=== PATIENT | male | born 1955 ===

== ENCOUNTER 2019-05-06 15:31 | Emergency (ER) | payer OTHER ==
--- OUTSIDE RECORDS SUMMARY | 2019-05-06 15:54 | XMS REPORT | Summary of Care ---
:1955 Author Organization [facility] Address [address] [place] [address] Care Team Providers Name Role Phone Emanuel Glass MD Primary Care Provider Reason for Visit Auth/Cert Status Reason Specialty Diagnoses / Procedures Referred By Contact Referred To Contact Diagnoses Avascular necrosis of bone of hip, left [M87.052] Nathaniel Herrera, Nathaniel Herrera, Procedures ARTHROPLASTY, ACETABULAR/PROXIMAL FEMORAL PROSTHETIC REPLACEMENT, W/WO AUTOGRAFT /ALLOGRAFT BALTA HIP REPLACEMENT MD SANDERS [address] [place] [address] [address] [place] [address] [place] [address] Email: Email: [email or web address] Encounter Details Date Type Department Care Team Description 04/29/2019 - Hospital Encounter 6 MED/SURG/ORTHO CC Nathaniel Herrera, 05/01/2019 49[address] Cooper Sotomayor MD [address] [address] [place] [id number] [phone] Allergies No Known Allergiesdocumented as of this encounter (statuses as of 05/01/2019) Medications Medication Sig Dispensed Refills Start Date End Date Status aspirin 81 MG EC Take 81 mg by 0 Active tablet mouth daily amlodipine Take 10 mg by 0 Active (NORVASC) 5 MG mouth daily tablet allopurinol Take 100 mg by 0 Active (ZYLOPRIM) 100 MG mouth Two tablet Times Daily lisinopril Take 40 mg by 0 Active (PRINIVIL,ZESTRIL) mouth daily 40 MG tablet cloNIDine HCl 0.1 Take 0.1 mg by 0 Active MG Oral Tablet mouth daily (CATAPRES) Celecoxib 100 MG Take 1 capsule 60 capsule 0 05/01/2019 05/31/20 Active Oral Capsule by mouth Two 19 (CELEBREX) Times Daily Acetaminophen 325 Take 2 tablets 30 tablet 0 05/01/2019 05/08/20 Active MG Oral Tablet by mouth every 19 6 (six) hours as needed for Pain for up to 7 days Docusate Sodium Take 1 capsule 14 capsule 0 05/01/2019 05/08/20 Active 100 MG Oral by mouth Two 19 Capsule (COLACE) Times Daily for 7 days Senna 8.6 MG Oral Take 2 tablets 14 tablet 0 05/01/2019 05/08/20 Active Tablet by mouth 19 nightly as needed for up to 7 days traMADol HCl 50 MG Take 1 tablet 30 tablet 0 05/01/2019 05/08/20 Active Oral Tablet by mouth every 19 (ULTRAM) 6 (six) hours as needed for Pain for up to 7 days, Max Daily Dose: 200 mg ibuprofen Take 600 mg by 0 05/01/20 Discontinued (ADVIL,MOTRIN) 600 mouth Three 19 (Stop Taking at MG tablet times daily as Discharge) needed for Pain Mupirocin 2 % Apply 22 g 0 04/23/2019 05/01/20 Discontinued External Ointment liberally to 19 (Stop Taking at each nostril Discharge) two times per day for 5 days prior to surgery. documented as of this encounter (statuses as of 05/01/2019) Active Problems Problem Noted Date Acute blood loss anemia 04/30/2019 Osteoarthritis of left hip 04/29/2019 Hypertension Gout Chronic left hip pain documented as of this encounter (statuses as of 05/01/2019) Social History Tobacco Use Types Packs/Day Years Used Date Never Smoker 0 Smokeless Tobacco: Never Used Alcohol Use Drinks/Week oz/Week Comments Not Currently Sex Assigned at Date Recorded Not on file Job Start Date Occupation Industry Not on file Not on file Not on file Travel History Travel Start Travel End No recent travel history available. documented as of this encounter Last Filed Vital Signs Vital Sign Reading Time Taken Comments Blood Pressure 131/72 05/01/2019 8:10 PM EST Pulse 89 05/01/2019 8:10 PM EST Temperature 36.8 05/01/2019 8:10 PM EST C (98.2 F) Respiratory Rate 18 05/01/2019 8:10 PM EST Oxygen Saturation 100% 05/01/2019 8:10 PM EST Inhaled Oxygen Concentration - - Weight 61.2 kg (135 lb) 04/29/2019 10:51 AM EST Height 162.6 cm (5' 4") 04/29/2019 10:51 AM EST Body Mass Index 23.17 04/29/2019 10:51 AM EST documented in this encounter Progress Notes Terry Harrell, RN - 05/01/2019 8:46 PM EST Assumed care from 1500 until discharge. No acute changes during this time. Reviewed discharge instructions and pt verbalized understanding. No further questions and pt identifies when to call the doctor, understanding of medications, and future appointments. Also identifies restrictions and verbalizes understanding. Has all personal belongings in their possession and vital signs stable. PIV discontinued and Pt is discharged to [address] [place] [address] correctional facility along with correctional officers.Report given to Jayde Leal RN in [address] [place] [address] ([phone]). Transported via wheelchair to [facility]. 05/01/192009 Vitals Temp 36.8 C Temp src Oral Pulse 89 Heart Rate Source Monitor Resp 18 BP 131/72 BP Location Left arm BP Method Automatic Patient Position Sitting Oxygen Therapy SpO2 100 % Tamia Cage, PT - 05/01/2019 2:15 PM ESTPhysical Therapy Acute CareTotal Joint Treatment Note Medical Diagnosis: L SERGIO direct anterior approach on 04/29/19 Rehabilitation Precautions/Restrictions: OOB with assist. FWB. Direct anterior hip precautions. Full code. moderate fall risk. Goal Review Visit Number: 3 SUBJECTIVE Patient Report: pt is agreeable to therapy session. Pain: Patient currently complains of pain. Location: L hip . Patient describes pain as Nonspecific. Verbal Scale: Patient reports a pain level of 6 out of 10. Will perform therapy only as tolerated. Pain Medication Today: yes. OBJECTIVE General Observation: pt received supine in bed in NAD. All attachments intact. Bed alarm was on at start of session. Vital Signs: Blood pressure in Supine: 100/58 in sittin/71 end of session: 113/66 Range of Motion:No change observed. Strength:No change observed. Skin Integrity Screen: L hip incision covered with dressing appears c/d/i Functional Status: Transfers: Patient transferred sit to/from stand with modified independence. Patient used the following equipment: Arms of chair. Patient used the following equipment: rolling walker. Bed Mobility: Within functional limits. Locomotion/Gait/Ambulation: Patient was modified independent with gait/ambulation for 600 feet . Patient requires the following assistive device(s): Rolling walker. Step through pattern. No assist required for mobility. therapist managing IV pole Stairs: Not applicable for this patient at this time. Outcome Measures: [facility] AM-PAC "6 Clicks" Basic Mobility Inpatient Short Form: Turning over in bed: A little difficulty (3) Sitting down on and standing up from a chair with arms: A little difficulty (3) Moving from lying on back to sitting on the side of the bed: A little difficulty (3) Moving to and from a bed to a chair (including a wheelchair): No help (4) Walking in hospital room: No help (4) Climbing 3-5 steps with a railing: A little help (3) Raw Score 20 /24. Interventions: Therapeutic Exercise: Instructed in and performed LAQs to promote ROM and circulation in L LE x 10 reps. Verbal cues for technique. Gait Training: Facilitated ambulation with rolling walker x 600 feet. pt demonstrating modified independence. Verbal cues for step through pattern. Education: Mode of education provided: Explanation. Audience: Patient. Education Provided: treatment plan. . Response: Verbalized understanding. ASSESSMENT Response to Visit: The session was tolerated well. pt left sitting in recliner in NAD. Chair alarm was on at end of session. Call chaparro was in patient's reach at end of session. Pain: Yes, pain is unchanged from start of today's treatment. Goal review: Short Term Goals: 1. pt will complete supine to/from sit independently within 1 week Status: goal met 2. pt will complete sit to/from stand with rolling walker modified independently within 1 week. Status: goal met 3. pt will ambulate 400 feet modified independently with rolling walker within 1 week. Status: goal met 4. pt will go up/down 5 stairs with unilateral rail modified independently within 1 week. Status: progressing, Changes in or Continuation of Plan of Care: Patient will benefit from continued therapy to achieve planned goals. PLAN Treatment Frequency, Duration and Interventions: Restorative Physical Therapy is recommended for 2x per day for 2 weeks Treatment is to include: Gait Training. Therapeutic Activity. Therapeutic Exercise. Self Care/Home Management. Patient/family/professionals conference. Equipment Provided: None issued this visit. Equipment Recommended: Rolling walker. Recommended Physical Therapy Follow Up: Upon acute care discharge, the following is currently recommended: Return to correctional facility with outpatient PT Recommended Consults: None currently. Development of Plan of Care: Participants included: pt. There was no change to plan of care today. Visit Number: Today's visit is number 3 Program: Total Joint (Therapist may be reached on [employer]) SESSION: Duration: 30 CHARGES: 65939 - CHARGE - PT GAIT TRNG - 15 MIN 1 Units 24460 - CHARGE - PT THER EX - 15 MIN 1 Units - ORDER - Physical Therapy Treatment 1 Units - TOTAL JOINT VISIT 1 Units Total treatment minutes: 30.00 Minutes Electronically Signed by: Tamia Rinaldi PT, DPT, 05/01/2019 2:25:18 PM Betty Olmstead OT - 05/01/2019 11:25 AM ESTOccupational Therapy Acute Care Missed Visit Note Location: Bedside. Attempted to visit patient for therapy, but was unable for the following reasons: Patient Ill. Nursing requestin no OOB activity at this time. Patient to receive blood transfusion shortly. Will attempt to eval patient at a later time as schedule allows. (Therapist may be reached on [employer]) SESSION: Duration: 0 CHARGES: - CHARGE-IP OT PATIENT ILL 1 Units - ORDER - OCCUPATIONAL THERAPY CONSULT 1 Units Total treatment minutes: 0.00 Minutes Electronically Signed by: Betty Palacios OT, 05/01/2019 11:26:10 AM Tamia Cage PT - 05/01/2019 10:08 AM ESTPhysical Therapy Acute Care Missed Visit Note Location: bedside Attempted to visit patient for therapy, but was unable for the following reasons: Patient Ill. Per RN, requesting pt not get out of bed at this time due to hypotension and awaiting blood transfusion. Will re-attempt at a later time. (Therapist may be reached on [employer]oc[employer]) SESSION: Duration: 0 CHARGES: 02311 - CHARGE IP PT PATIENT ILL 1 Units - ORDER - Physical Therapy Treatment 1 Units Total treatment minutes: 0.00 Minutes Electronically Signed by: Tamia Rinaldi PT, DPT, 05/01/2019 10:10:23 AM Daja Sharif - 05/01/2019 9:00 AM ESTPatient visited by Department of Spiritual Care Volunteer - Meghana Nails Note entered by Daja Camejo MS, Department of Spiritual Care Real Estate Acquisition Analyst, [facility] Natali Raymond RN - 05/01/2019 8:22 AM ESTPt was performing ADL's in bathroom. Pt became "dizzy" and did not respond for a few seconds when asked how he was feeling. Staff assisted Pt to siting position in the shower chair. Staff came to assist Pt back to bed. BP was 96/61 during episode. Pt placed in trendelenburg, fluids started and ZABRINA madeaware. Lisinopril and norvasc held. Will continue to monitor. Laura Feliz PA - 2018 8:09 AM EST ORTHOPEDIC PROGRESS NOTE Hospital Day: 3, 2 Days Post-Op Procedure(s): LEFT TOTAL HIP WITH MAKOPLASTY BY DIRECT ANTERIOR APPROACH (BALTA EQUIPMENT, CARLEY ACCOLADE II STEM) (Left) Subjective: Patient doing okay. Denies headache, chest pain, shortness of breath, nausea, vomiting, or abdominalpain. Pain well controlled. Vasovagal this AM when pt ambulating to bathroom. Became dizzy but did not lose consciousness per nursing. BP 94/57 and receiving IV fluid bolus. Pt back to bed and is feeling better at rest. Vitals: Vitals: 04/30/19 1520 04/30/19 2020 04/30/19 2320 05/01/19 0639 BP: 115/71 101/61 98/60 Pulse: 80 78 81 Resp: 16 16 17 Temp: 36.7 C 36.6 C 36.7 C SpO2: 100% 99% 100% 100% Intake/Output last 3 shifts: I/O last 3 completed shifts: In: 2635 [P.O.:1080; I.V.:1555] Out: 1200 [Urine:1200] Intake/Output Summary (Last 24 hours) at 05/01/2019 0809 Last data filed at 05/01/2019 0639 Gross per 24 hour Intake 2395 ml Output 850 ml Net 1545 ml Drain Output: Drain Output (mL) 04/30/19 0700 - 05/01/19 0659 05/01/19 0700 - 05/01/19 0809 Patient has no LDAs of requested type attached. Physical Exam: Alert, Awake, Oriented x 3 No acute distress Lungs no respiratory distress ABD soft Dressing clean, dry, no drainage, intact. Left lower extremity: +SILT distally +EHL/FHL/DF/PF Toes WWP, palp distal pulse Calves benign B/L Labs: Recent Labs Lab 05/01/19 0444 HCT 21.5* HGB 7.5* MCH 34.6* MCHC 35.2 MCV 98.4* PLT 154 RDW 14.0 WBC 6.8 Recent Labs Lab 04/30/19 0405 NA 135* K 4.8 CL 101 BICARBONATE 26 GLUCOSE 163* BUN 14 CREATININE 1.07 BCR 13 GFRAA 82 GFRNONAA 71 Lab Results Component Value Date CALCIUM 8.4 (L) 04/30/2019 No results found for: INR, PROTIME ASSESSMENT: Principal Problem: Osteoarthritis of left hip Active Problems: Hypertension Gout Chronic left hip pain Acute blood loss anemia PLAN: -Osteoarthritis of left hip 2 Days Post-Op s/p L SERGIO -Ortho stable post op -Continue OOB, WBAT -Mild elevation in WBC POD1 , has since resolved without abx, likely reactive from surgery. Afebrile -Vasovagal this AM when pt ambulating to bathroom. Nursing in room with patient. Pt did not lose consciousness. BP 94/57. Ordered 500cc bolus x1. Hct 21 this AM. Ordered 1u PRBC for transfusion. Will continue to monitor. Pt encouraged to increase fluid PO intake. Per pt does not like to "drink too Much " because he will "be in the bathroom too much". I still recommended increasing PO fluids due to low BP and dizziness. Pt voices understanding -Anterior hip precautions -Continue PT/OT -Pain control ,well controlled with current regimen -Per CM, pt will be able to go back to -Acute Blood Loss Anemia- expected post op, H&H 7.5/21.5 this AM, vasovagal this AM with some lightheadedness, ordered 1u PRBC in light of low Hct and symptomatic, continue to monitor. -HTN- 94/57 this AM and had vasovagal, receiving 500cc IV fluid bolus, home BP meds held this AM, monitor -Gout - no acute flares, continue home allopurinol - DVT Prophylaxis - SCDs Lovenox 40 mg Daily - DCP - back to half-way likely today with PT services there Certain parts of this note may have been carried over from prior notes to maintain accuracy of patient's pertinent medical history and continuity of care. The details were verified and edited as appropriate. Laura Cueva Astrid Roa, MIKE - 04/30/2019 5:41 PM ESTCase Management Screen &amp ; Assessment Patient's Name: Tanmay Zabala Date of : 1955 Age: 64 y.o. Gender: male Attending Provider: Nathaniel Herrera MD Admitting Diagnosis: Osteoarthritis of left hip [M16.12] Admission Date and Time: 04/29/2019 8:54 AM High Risk Criteria - BATTER MIXER/Upon Arrival BATTER MIXER-Type of Residence: Long-Term / Incarcerated Limited Home Supports/Lives Alone?: No Multi trauma/Critical care admit?: No Head/Spinal cord injury?: No Self pay/No prescription plan?: No Active with homecare?: No Multiple ED visits?: No Related/Unplanned readmission within 30 days?: No Complex/New medical issues: left total hip Relevant comorbidities: htn, gout Psychosocial considerations: incarcerated CM Screen Outcome Knowledge Management Advisor Screen Outcome: Meets high risk criteria for active manager case management intervention(return to5PTs in [place]) Important message (Medicare rights) given?: No Intervention: (na) CM Chart Review Notice of Privacy Practice Signed?: Yes Self Pay: No Prescription Plan?: Yes (comment) BATTER MIXER: Functional/Environmental Assessment Came from Rehab/SNF, plan to return?: No Brief physical/psychosocial summary: resides at the [facility] Bathing: Independent Dressing: Independent Toileting: Independent Medication administration: Independent Transfers: Independent Ambulation: Independent Meal preparation: Independent Durable Medical Equipment (DME): (available at the correctional facility) Potential Issues/Teaching Needs Physical: PT eval, safety at home (correctional facility) Other: care of incision, discharge instructions Case Management Review Date CM re-review date needed?: No Discharge Assessment Patient/family informed of need for discharge planning?: No(will update guards) Patient expects to be discharged to:: back to [facility] Actual discharge location : Correctional Facility Has discharge transport been arranged?: (will be arranged upon discharge) Home with support services reinstated?: No Living Arrangements: Other (Comment) Support Systems: Other (Comment) Type of Residence: Long-Term / Incarcerated Care Facility Name: [address] [place] [address] Home services arranged?: No Note: Chart reviewed. Patient admitted for a left total hip. Patient resides at the [facility]. CM received a call from Eliseo Marcelino CM for the Correctional System. Per Eliseo [facility] is planning on taking the patient back at their facility as long as he can transfer and ambulate independently. Cm spoke with PT this afternoon who said the patient is moving well and is independent with transfers and ambulation. I will call the correctional facility in the am to obtain a fax number to fax clinical to for their review. I anticipate he will be able to be discharged tomorrow if medically stable. Nursing will need to call nurse to nurse report to the nurse human resources benefits administrator at [phone], dial 0 and ask for the nurses station. NOPP signed. CM to follow up in the am. Astrid Parham ChristineElectroncole signed by Astrid Parham RN at 2018 5:47 PM Tamia Cage PT - 04/30/2019 4:02 PM ESTPhysical Therapy Acute Care Encounter Note Medical Diagnosis: L SERGIO direct anterior approach on 04/29/19 Rehabilitation Precautions/Restrictions: OOB with assist. FWB. Direct anterior hip precautions. Full code. moderate fall risk. Goal Review Visit Number: 2 SUBJECTIVE Patient Report: Pt is agreeable to therapy session. Pain: Patient has no complaints of pain currently. Pain Medication Today: yes. OBJECTIVE General Observation: pt received sitting in recliner in NAD. All attachments intact. Chair alarm was on at start of session. Skin Integrity Screen: L hip incision covered with dressing appears c/d/i Vital Signs: Stable. Functional Status: Transfers: Patient transferred sit to/from stand with modified independence. Patient used the following equipment: rolling walker. pushing up from edge of bed. Bed Mobility: Within functional limits. Locomotion/Gait/Ambulation: Patient was supervision with gait/ambulation for 600 feet . Patient requires the following assistive device(s): Gait belt. Rolling walker. Step through pattern. Slightly decreased hortensia. Stairs: Not applicable for this patient at this time. Outcome Measures: [facility] "6 Clicks" Basic Mobility Inpatient Short Form: Turning over in bed: A little difficulty (3) Sitting down on and standing up from a chair with arms: A little difficulty (3) Moving from lying on back to sitting on the side of the bed: A little difficulty (3) Moving to and from a bed to a chair (including a wheelchair): No help (4) Walking in hospital room: No help (4) Climbing 3-5 steps with a railing: A little help (3) Raw Score 20 /24. Interventions: Therapeutic Exercise: Instructed in and performed ther ex to promote ROM and circulation in L LE. All completed 2 x 10 reps. Verbal cues for technique. -ankle pumps -quad sets -glute sets Therapeutic Activities: Therapeutic Activities: Facilitated ambulation with rolling walker with distant supervision x 600 feet. Verbal cues for improving gait speed. Facilitated sit to supine from flat bed. pt demonstrating independence. Education: Mode of education provided: Explanation. Audience: Patient. Education Provided: treatment plan. . Response: Verbalized understanding. ASSESSMENT Response to Visit: The session was tolerated well. pt left supine in bed in NAD. Chair alarm was on at end of session. Call chaparro was in patient's reach at end of session. Pain: Patient has no complaints of pain currently. PLAN Treatment Frequency, Duration and Interventions: Restorative Physical Therapy is recommended for 2x per day for 2 weeks Treatment is to include: Gait Training. Therapeutic Activity. Therapeutic Exercise. Self Care/Home Management. Patient/family/professionals conference. Cold/Ice Pack. Recommended Physical Therapy Follow Up: Upon acute care discharge, the following is currently recommended: Return to correctional facility Equipment Provided: None issued this visit. Visit Number: Today's visit is number 2 Program: Total Joint (Therapist may be reached on Voc[employer]) SESSION: Duration: 31 CHARGES: - ORDER - Physical Therapy Treatment 1 Units 85455 - CHARGE - PT THER EX - 15 MIN 1 Units 27187 - CHARGE - PT THERAPEUTIC ACTIVITIES - 15 MIN 1 Units - TOTAL JOINT VISIT 1 Units Total treatment minutes: 31.00 Minutes Electronically Signed by: Tamia Rinaldi PT, DPT, 04/30/2019 4:07:55 PM Laura Feliz PA - 04/30/2019 8:01 AM EST ORTHOPEDIC PROGRESS NOTE Hospital Day: 2, 1 Day Post-Op Procedure(s): LEFT TOTAL HIP WITH MAKOPLASTY BY DIRECT ANTERIOR APPROACH (BALTA EQUIPMENT, CARLEY ACCOLADE II STEM) (Left) Subjective: Patient doing well. No new complaints. Denies chest pain, shortness of breath, nausea, vomiting, or abdominal pain. Pain well controlled. Vitals: Vitals: 04/29/19 2100 04/29/19 2200 04/29/19 2300 04/30/19 0406 BP: 117/71 96/64 104/60 93/50 Pulse: 78 92 89 81 Resp: 15 17 17 16 Temp: 36.8 C 36.4 C 36.4 C 36.8 C SpO2: 100% 100% 100% 100% Intake/Output last 3 shifts: I/O last 3 completed shifts: In: 1600 [I.V.:1500; IV Piggyback:100] Out: 1200 [Urine:950; Blood:250] Intake/Output Summary (Last 24 hours) at 04/30/2019 0801 Last data filed at 04/30/2019 0716 Gross per 24 hour Intake 1600 ml Output 1350 ml Net 250 ml Drain Output: Drain Output (mL) 04/29/19 0700 - 04/30/19 0659 04/30/19 0700 - 04/30/19 0801 Patient has no LDAs of requested type attached. Physical Exam: Alert, Awake, Oriented x 3 No acute distress Lungs no respiratory distress ABD soft Dressing clean, dry, no drainage, intact. Left lower extremity: +SILT distally +EHL/FHL/DF/PF Toes WWP, palp distal pulse Calves benign B/L Labs: Recent Labs Lab 04/30/19 0405 HCT 27.2* HGB 9.3* MCH 33.8* MCHC 34.2 MCV 98.9* PLT 196 RDW 14.0 WBC 12.1* Recent Labs Lab 04/30/19 0405 NA 135* K 4.8 CL 101 BICARBONATE 26 GLUCOSE 163* BUN 14 CREATININE 1.07 BCR 13 GFRAA 82 GFRNONAA 71 Lab Results Component Value Date CALCIUM 8.4 (L) 04/30/2019 No results found for: INR, PROTIME ASSESSMENT: Principal Problem: Osteoarthritis of left hip Active Problems: Hypertension Gout Chronic left hip pain Acute blood loss anemia PLAN: -Osteoarthritis of left hip 1 Day Post-Op s/p L SERGIO -DWPO -OOB, WBAT -Mild elevation in WBC at 12.1, likely reactive from surgery. Afebrile -Anterior hip precautions -Continue PT/OT -Pain control ,well controlled with current regimen -Acute Blood Loss Anemia- expected post op, mild, asymptomatic, continue to monitor. -HTN- on the lower side this AM at 93/50, pt asymptomatic, continue home amlodipine, clonidine, lisinopril with hold parameters, monitor -Gout - no acute flares, continue home allopurinol - DVT Prophylaxis - SCDs Lovenox 40 mg Daily - DCP - pending PT progress Certain parts of this note may have been carried over from prior notes to maintain accuracy of patient's pertinent medical history and continuity of care. The details were verified and edited as appropriate. Laura Cueva Associated attestation - Nathaniel Herrera MD - 04/30/2019 7:29 PM ESTORTHOPEDIC ATTENDING NOTE Patient seen and examined. Physician's inventory control assistant note reviewed. I agree with the assessment and plan. Changes/modifications, if any, are noted below. Strong active quad firing. Decreased LTS over LFCN distribution as is common with DAA.Laura Cueva PA - 04/29/2019 8:41 PM EST ORTHOPEDIC POST-OP CHECK: Patient seen and examined, s/p Procedure(s): LEFT TOTAL HIP WITH MAKOPLASTY BY DIRECT ANTERIOR APPROACH (BALTA EQUIPMENT, CARLEY ACCOLADE II STEM) (Left). No issues at this time. Has been doing well since arrival on the floor. Denies nausea/vomiting/headaches/chest pain/shortness of breath. PE: Visit Vitals BP 97/62 (BP Location: Right arm, Patient Position: Lying) Pulse 90 Temp 36.6 C (Oral) Resp 14 Ht 1.626 m Wt 61.2 kg (135 lb) SpO2 100% BMI 23.17 kg/m GEN: No acute distress. Patient Alert and Oriented x3. Dressing clean, dry, no drainage, intact. Left lower extremity: +diminished sensation distally, likely secondary to nerve block +EHL/FHL/DF/PF Toes WWP, palp distal pulse Calves benign B/L Post-Op X-ray: IMPRESSION: Status post left total hip arthroplasty. alignment appears anatomic. A/P: Tanmay Zabala is a 64 y.o. y.o. male s/p Procedure(s): LEFT TOTAL HIP WITH MAKOPLASTY BY DIRECT ANTERIOR APPROACH (BALTA EQUIPMENT, CARLEY ACCOLADE II STEM) (Left), POD#0 No current concerns. Pain control. Continue current orders. Will continue to monitor. DVT Prophylaxis: SCDs Lovenox 40 mg Daily Laura Cueva PA Roz Sage RN - 04/29/2019 4:58 PM EST 04/29/19 1650 Patient Observation Observations Patient bladder scanned for 227 ml Genny Zapata BS RN - 04/29/2019 3:29 PM ESTSpoke with MINNIE Marcelino and will contact unit manager case management tomorrow to coordinate d/c plan. Will remain available. Genny Coffey BS citizen participation specialist Navigator documented in this encounter Plan of Treatment Date Type Specialty Care Team Description 05/16/2019 Office Visit Orthopedic Surgery Nathaniel Herrera MD [address] [place] [address] [phone] 05/16/2019 Office Visit Orthopedic Surgery Name Type Priority Associated Diagnoses Date/Time Surgical Pathology Pathology and Routine 04/29/2019 3:36 Exam (Community Cytology PM EST [place] Only) CROSSMATCH, PAT Blood Bank Routine 05/01/2019 7:00 AM EST Name Type Priority Associated Order Schedule Diagnoses Surgical Pathology Pathology and Routine Once for 1 Exam (Community Cytology Occurrences [place] Only) starting 04/29/2019 until 04/29/2019 Oxygen Orders: Respiratory Care Routine Continuous for 30 Nasal Cannula; days for 4 Days Liters per minute: starting 04/29/2019 2 LPM; D/C Oxygen until 05/03/2019 48hrs After Being on Room Air: Yes; Wean/Titrate O2 to Keep Sats =>: 91 Incentive Respiratory Care Routine Respiratory use Spirometry RT Teach only - Every 2 hours while awake for 30 Days starting 04/29/2019 until 05/29/2019 CBC Lab Routine Daily for 3 Occurrences starting 04/30/2019 until 05/02/2019, 2 completed Prepare RBC 1 Unit Blood Bank Routine Once for 1 Occurrences starting 05/01/2019 until 05/01/2019 Health Maintenance Due Date Last Done Comments MMR Vaccines (1 of 1 - Standard 1955 series) DTaP,Tdap,and Td Vaccines (1 - 1961 Tdap) Colon Cancer Screening 10 yrs 2004 Zoster Vaccines (1 of 2) 2004 Influenza Vaccine 03/11/2019 Pneumococcal Vaccine: 65+ Years (1 2019 of 2 - PCV13) Hepatitis C Screening (B. Completed 04/30/2019 [id number]) HIB Vaccines Aged Out No longer eligible based on patient's age to complete this topic Hepatitis A Vaccines Aged Out No longer eligible based on patient's age to complete this topic Hepatitis B Vaccines Aged Out No longer eligible based on patient's age to complete this topic IPV Vaccines Aged Out No longer eligible based on patient's age to complete this topic Pneumococcal Vaccine: Pediatrics Aged Out No longer eligible based on (0 to 5 Years) and At-Risk patient's age to complete Patients (6 to 64 Years) this topic Varicella Vaccines Aged Out No longer eligible based on patient's age to complete this topic documented as of this encounter Implants Implanted Type Area Ingot Passer Device Shelf Model / Identifier Expiration Serial / Date Lot Shell Acetab 50mm Deloristrident Ii - [id number] Left: CARLEY 04/11 [id number] / Implanted: Qty: 1 on 04/29/2019 by Nathaniel Herrera MD at OR [email or web address] / [id number] Liner 36mm 0dg Sz D - [id number] Left: CARLEY 02/25/2024 [id number] / Implanted: Qty: 1 on 04/29/2019 by Nathaniel Herrera MD at OR [email or web address] / [id number] Screw Hex Low Prof 6.5x25mm. - [id number] Left: CARLEY 11/12/2023 [id number] / Implanted: Qty: 1 on 04/29/2019 by Nathaniel Herrera MD at OR [email or web address] / [id number] Hip Stem Angled Accoladeii 132#4. - [id number] Left: CARLEY 02/05/2024 [id number] / Implanted: Qty: 1 on 04/29/2019 by Nathaniel Herrera MD at OR [email or web address] / [id number] Head Fem Lfit V40 36mm Std - [id number] Left: CARLEY 03/10/2020 [id number] / Implanted: Qty: 1 on 04/29/2019 by Nathaniel Herrera MD at OR [email or web address] / [id number] documented as of this encounter Procedures Procedure Name Priority Date/Time Associated Comments Diagnosis POCT GLUCOSE, DOCKED Routine 05/01/2019 5:16 Results for this PM EST procedure are in the results section. HEMOGLOBIN Routine 05/01/2019 4:40 Results for this PM EST procedure are in the results section. HEMATOCRIT Routine 05/01/2019 4:40 Results for this PM EST procedure are in the results section. TRANSFUSE RBC (ONCE) Routine 05/01/2019 3:59 PM EST CONFIRMATORY TYPE Routine 05/01/2019 4:44 Results for this AM EST procedure are in the results section. HEPATITIS C ANTIBODY Routine 05/01/2019 4:44 Results for this AM EST procedure are in the results section. CBC Routine 05/01/2019 4:44 Results for this AM EST procedure are in the results section. CBC Routine 04/30/2019 4:05 Results for this AM EST procedure are in the results section. BASIC METABOLIC PANEL Routine 04/30/2019 4:05 Results for this AM EST procedure are in the results section. XR PELVIS 1-2 VIEWS STAT 04/29/2019 5:29 Results for this 16995 PM EST procedure are in the results section. ARTHROPLASTY, 04/29/2019 2:35 Avascular necrosis ACETABULAR/PROXIMAL PM EST of bone of hip, FEMORAL PROSTHETIC left REPLACEMENT, W/WO AUTOGRAFT/ALLOGRAFT Special Needs NIKITA [id number] US GUIDED PERIPHERAL NERVE BLOCK (OR ONLY) Routine 04/29/2019 1:35 PM EST RADIOLOGY REPORT 04/25/2019 1:10 PM EST documented in this encounter Results POCT glucose, docked (05/01/2019 5:16 PM EST) POC Glucose 103 70 - 140 mg/dL [facility] POC Specimen Whole Blood Performing Organization Address [facility] Phone Number POINT OF CARE TEST [address] [place] [address] [facility] POC [address] [place] [phone] Hematocrit (05/01/2019 4:40 PM EST) Hematocrit 26.9 (L) 41 - 53 % [facility] at Specimen EDTA Whole Blood Performing Organization Address [facility] Phone Number [facility] PATHOLOGY AT [facility] [address] [place] [address] [facility] at [address] [address] Hemoglobin (05/01/2019 4:40 PM EST) Hemoglobin 9.3 (L) 13.5 - 18 g/dL [facility] at Specimen EDTA Whole Blood Performing Organization Address City/[facility] Phone Number [facility] PATHOLOGY AT [facility] [address] [place] [address] [facility] at [address] [place] [phone] Confirmatory Type (05/01/2019 4:44 AM EST) ABO/RH(D) O POS [facility] at Blood Bank Comment Blood Type [facility] at Specimen EDTA Whole Blood Performing Organization Address City/[facility]/Zipcode Phone Number [facility] PATHOLOGY AT [address] [address] [facility] at [address] [place] [phone] Hepatitis C antibody (05/01/2019 4:44 AM EST) Pathologist [facility] Hepatitis C Ab Non ReactiveComment: Non Reactive [facility] serological Univ Clin evidence of active Pathology infection. If recent exposure is suspected, test for HCV RNA. Specimen Serum Performing Organization Address [facility] Phone Number [facility] CLINICAL PATHOLOGY [address] [place] [address] [facility] Clin [address] [place] [address] Pathology CBC (05/01/2019 4:44 AM EST) White Blood Cell 6.8 4 - 10 10*3/uL [facility] at Red Blood Cell 2.18 (L) 4.6 - 6.1 [facility] 10*6/uL [facility] at Hemoglobin 7.5 (L) 13.5 - 18 g/dL [facility] at Hematocrit 21.5 (L) 41 - 53 % [facility] Mean Cell Volume 98.4 (H) 80 - 96 fL [facility] Mean Cell Hemoglobin 34.6 (H) 27 - 33 pg [facility] Mean Cell Hgb Conc 35.2 32.0 - 36.0 [facility] g/dL [facility] at Red Cell Dist Width 14.0 11.5 - 14.5 % [facility] Platelet Count 154 150 - 400 [facility] 10*3/uL Medical [facility] at Specimen EDTA Whole Blood Performing Organization Address City/[facility]/Zipcode Phone Number [facility] PATHOLOGY AT [address] [address] [phone] [facility] at [address] [address] CBC (04/30/2019 4:05 AM EST) White Blood Cell 12.1 (H) 4 - 10 10*3/uL [facility] at Red Blood Cell 2.75 (L) 4.6 - 6.1 [facility] 10*6/uL Medical Univ at CG Hemoglobin 9.3 (L) 13.5 - 18 g/dL [facility] at Hematocrit 27.2 (L) 41 - 53 % [facility] at Mean Cell Volume 98.9 (H) 80 - [address] [facility] at Mean Cell Hemoglobin 33.8 (H) 27 - [address] [facility] at Mean Cell Hgb Conc 34.2 32.0 - 36.0 [facility] g/dL Medical [facility] at Red Cell Dist Width 14.0 11.5 - 14.5 % [facility] at Platelet Count 196 150 - 400 [facility] 10*3/uL [facility] at Specimen EDTA Whole Blood Performing Organization Address City/State/Zipcode Phone Number [facility] PATHOLOGY AT [address] [address] [phone] [facility] at [facility] [place] [address] Basic Metabolic Panel (04/30/2019 4:05 AM EST) Bicarbonate 26 22 - 29 mmol/L [facility] at Chloride 101 98 - 107 mmol/L [facility] at Creatinine 1.07 0.70 - 1.20 [facility] mg/dL [facility] at Glucose 163 (H) 70 - 140 mg/dL [facility] at Potassium 4.8 3.4 - 5.1 [facility] mmol/L Medical [facility] at Sodium 135 (L) 136 - 145 [facility] mmol/L Medical [facility] at Blood Urea Nitrogen 14 8 - 23 mg/dL [facility] at Anion Gap 8 8 - 15 mmol/L [facility] at Osmolality, Nam 284 275 - 300 [facility] mosm/kg Medical [facility] at BUN/Cre Ratio [address] [facility] at Calcium 8.4 (L) 8.8 - 10.2 [facility] mg/dL Medical Univ at GFR Non 71 >60 [facility] Ethiopian 2009 CDK-EPI mL/min/1.73m2 Medical Univ at CG GFR 82 >60 [facility] 2009 CKD-EPI mL/min/1.73m2 Medical Univ at CG Specimen Plasma Performing Organization Address City/State/Zipcode Phone Number [facility] PATHOLOGY AT [facility] [address] [place], [place] [phone] [facility] at [address] [place] [address] XR Pelvis 1-2 Views (04/29/2019 5:29 PM EST) Specimen Narrative Performed At PROCEDURE INFORMATION: [facility] RADIOLOGY Exam: XR Pelvis Exam date and time: 04/29/2019 5:20 PM Age: 64 years old Clinical history: Hip pain; Left hip; Additional info: Post op evaluation for alignment of prosthesis TECHNIQUE: Imaging protocol: XR pelvis. Views: 1 or 2 view. COMPARISON: DX XR HIP- UNILAT, 2-3 VIEWS [id number] 01/20/2019 8:39 AM FINDINGS: Bones/joints: Status post a left total hip arthroplasty. Soft tissues: Extensive subcutaneous emphysema is present within the lateral soft tissues on the left. Other findings: There is usual appearance of this procedure. IMPRESSION: Status post left total hip arthroplasty. alignment appears anatomic. THIS DOCUMENT HAS BEEN ELECTRONICALLY SIGNED BY CHUYITA NEAL MD Procedure Note Interface, Received Via [employer] - 04/29/2019 5:33 PM EST PROCEDURE INFORMATION: Exam: XR Pelvis Exam date and time: 04/29/2019 5:20 PM Age: 64 years old Clinical history: Hip pain; Left hip; Additional info: Post op evaluation for alignment of prosthesis TECHNIQUE: Imaging protocol: XR pelvis. Views: 1 or 2 view. COMPARISON: DX XR HIP- UNILAT, 2-3 VIEWS [id number] 01/20/2019 8:39 AM FINDINGS: Bones/joints: Status post a left total hip arthroplasty. Soft tissues: Extensive subcutaneous emphysema is present within the lateral soft tissues on the left. Other findings: There is usual appearance of this procedure. IMPRESSION: Status post left total hip arthroplasty. alignment appears anatomic. THIS DOCUMENT HAS BEEN ELECTRONICALLY SIGNED BY CHUYITA NEAL MD Performing Organization Address City/[facility]/Zipcode Phone Number [facility] RADIOLOGY [address] [place] [address] US Guided Peripheral Nerve Block (OR ONLY) (04/29/2019 1:35 PM EST) Specimen Performing Organization Address City/[facility]/Zipcode Phone Number [facility] RADIOLOGY [address] [place] [address] RADIOLOGY REPORT (04/25/2019 1:10 PM EST) Narrative Performed At documented in this encounter Visit Diagnoses Diagnosis Osteoarthritis of left hip - Primary Osteoarthrosis, unspecified whether generalized or localized, pelvic region and thigh Hypertension Unspecified essential hypertension Gout Gout, unspecified Chronic left hip pain Pain in joint, pelvic region and thigh Acute blood loss anemia Acute posthemorrhagic anemia documented in this encounter Administered Medications Medication Order MAR Action Action Date Dose Rate Site acetaminophen (TYLENOL) tablet Given 04/30/2019 6:05 PM EST 650 mg 650 mg 650 mg, Oral, Every 6 hours PRN, Mild Pain (Pain Scale Score 1-3), Starting Sun04/29/19 at 1828, For 30 days, Maximum daily dose of acetaminophen is 3,000 mg from all sources in 24 hours., Given 04/30/2019 8:46 AM EST 650 mg allopurinol (ZYLOPRIM) tablet 100 mg Given 05/01/2019 7:56 PM EST 100 mg 100 mg, Oral, 2 Times Daily, First dose on Sun04/29/19 at 2100, For 30 days Given 05/01/2019 9:31 AM EST 100 mg Given 04/30/2019 8:54 PM EST 100 mg aspirin EC EC tablet 81 mg Given 05/01/2019 9:30 AM EST 81 mg 81 mg, Oral, Daily Standard, First dose on Sun04/30/19 at 0900, For 30 days Given 04/30/2019 8:46 AM EST 81 mg celecoxib (CELEBREX) capsule 100 mg Given 05/01/2019 7:56 PM EST 100 mg 100 mg, Oral, 2 Times Daily, First dose on Sun04/30/19 at 2100, For 30 days Given 05/01/2019 9:31 AM EST 100 mg Given 04/30/2019 8:54 PM EST 100 mg docusate sodium (COLACE) capsule 100 mg Given 05/01/2019 9:31 AM EST 100 mg 100 mg, Oral, 2 Times Daily, First dose on Sun04/29/19 at 2100, For 30 days Given 04/30/2019 8:54 PM EST 100 mg Given 04/30/2019 8:46 AM EST 100 mg enoxaparin sodium (LOVENOX) injection 40 mg Given 05/01/2019 9:31 AM EST 40 mg 40 mg, Subcutaneous, Daily Standard, First dose on Sun04/30/19 at 0900, For 30 days, Non Patients: body weight < 150 kg, CrCl > 30 mL/min. Guidelines for Lovenox: MUST wait 24 hours before starting Enoxaparin if patient has epidural catheter. D/C Enoxaparin 10-12 hours prior to removing epidural catheter., Given 04/30/2019 8:46 AM EST 40 mg NaCl infusion 0.9 % New Bag 04/30/2019 5:58 AM EST 100 mL/hr at 100 mL/hr, Intravenous, Continuous, Starting Sun04/29/19 at 1730, For 30 days New Bag 04/29/2019 5:27 PM EST 100 mL/hr polyethylene glycol (MIRALAX) packet 17 g Given 05/01/2019 9:31 AM EST 17 g 17 g, Oral, Daily PRN, As needed for Constipation, Starting Sun04/29/19 at 1828, For 30 days, Mix in 8 ounces of water, juice or milk. Avoid use in patients who require thickened liquids due to potential increased risk for aspiration., senna 8.6 MG 2 tablet Given 04/30/2019 8:54 PM EST 2 tablets 2 tablet, Oral, Nightly, First dose on Sun04/29/19 at 2200, For 30 days Given 04/29/2019 9:11 PM EST 2 tablets sodium chloride (preservative free) 0.9 % New Bag 05/01/2019 2:48 AM EST 3 mLs flush 3 mL 3 mL, Intravenous, Every 8 hours Standard (3 times per day), First dose on Sun04/30/19 at 0100, For 30 days, Saline Lock. Flush Q8H and after each use to Saline Lock., Given by IV push 04/30/2019 6:05 PM EST 3 mLs Given by IV push 04/30/2019 8:47 AM EST 3 mLs sodium chloride (preservative free) 0.9 % flush 3 mL 3 mL, Intravenous, PRN, Line Care, Starting Sun04/29/19 at 1828, For 30 days, Saline Lock. Flush Q8H and after each use to Saline Lock., tramadol (ULTRAM) tablet 50 mg Given 05/01/2019 2:48 AM EST 50 mg 50 mg, Oral, Every 6 hours PRN, Moderate Pain (Pain Scale Score 4-6), Starting Sun04/30/19 at 1820, For 3 days Medication Order MAR Action Action Date Dose Rate Site acetaminophen (TYLENOL) tablet Given 04/29/2019 11:02 AM EST 975 mg 975 mg 975 mg, Oral, Once, Sun04/29/19 at 1045, For 1 dose, Pre-op, Maximum daily dose of acetaminophen is 3,000 mg from all sources in 24 hours., bupivacaine (MARCAINE) 0.25 % 20 mL, ketorolac Given 04/29/2019 4:11 PM EST (TORADOL) 30 mg, morphine sulfate (PF) 10 mg syringe Infiltration, Once, Sun04/29/19 at 1045, For 1 dose, Pre-op ceFAZolin (ANCEF) IVPB 2 g in New Bag 04/30/2019 6:34 AM EST 2 g 200 mL/ hr dextrose (premix) 2 g, Intravenous, Administer over 30 Minutes, Every 8 hours, First dose on Sun04/29/19 at 2300, For 2 doses New 04/29/2019 11:24 PM EST 2 g 200 mL/hr celecoxib (CELEBREX) capsule 100 mg Given 04/29/2019 11:02 AM EST 100 mg 100 mg, Oral, Once, Sun04/29/19 at 1045, For 1 dose, Pre-op gabapentin (NEURONTIN) capsule 200 mg Given 04/29/2019 11:02 AM EST 200 mg 200 mg, Oral, Once, Sun04/29/19 at 1045, For 1 dose, Pre-op lactated ringers infusion New Bag 04/29/2019 3:08 PM EST at 100 mL/hr, Intravenous, Continuous, Starting Sun04/29/19 at 1045, For 30 days, Keep Vein Open. Use Wide Tubing., Pre-op New Bag 04/29/2019 11:01 AM EST 100 mL/hr sodium chloride 0.9 % bolus 500 mL New Bag 05/01/2019 9:34 AM EST 500 mLs 500 mL, Intravenous, Once, [place] 05/01/19 at 0830, For 1 dose documented in this encounter
--- OUTSIDE RECORDS SUMMARY | 2019-05-06 15:54 | XMS REPORT | Summary of Care ---
:1955 Author Organization [facility] Address [address] [place] [address] Care Team Providers Name Role Phone Emanuel Glass MD Primary Care Provider Reason for Referral Diagnostic Radiology (Routine) Status Reason Specialty Diagnoses / Referred By Referred To Procedures Contact Contact Authorized Radiology Diagnoses Avascular necrosis of bone of left hip Parker Zarate PA Procedures CT Lower Extremity without Contrast Left CT Lower Extremity without Contrast Left [address] [place] [id number] Encounter Details Date Type Department Care Team Description 04/25/[address] Scan Community Avascular necrosis of [place] bone of left hip [address] [place] [address] Allergies No Known Allergiesdocumented as of this encounter (statuses as of 04/26/2019) Medications Medication Sig Dispensed Refills Start Date End Date Status aspirin 81 MG EC Take 81 mg by mouth 0 Active tablet daily amlodipine (NORVASC) Take 10 mg by mouth 0 Active 5 MG tablet daily allopurinol Take 100 mg by 0 Active (ZYLOPRIM) 100 MG mouth Two Times tablet Daily ibuprofen Take 600 mg by 0 Active (ADVIL,MOTRIN) 600 MG mouth Three times tablet daily as needed for Pain lisinopril Take 40 mg by mouth 0 Active (PRINIVIL,ZESTRIL) 40 daily MG tablet Mupirocin 2 % Apply liberally to 22 g 0 04/23/2019 Active External Ointment each nostril two times per day for 5 days prior to surgery. Celecoxib 200 MG Oral Take 200 mg by 0 Active Capsule (CeleBREX) mouth Two Times Daily cloNIDine HCl 0.1 MG Take 0.1 mg by 0 Active Oral Tablet mouth daily (CATAPRES) documented as of this encounter (statuses as of 04/26/2019) Active Problems No known active problemsdocumented as of this encounter (statuses as of 2018) Social History Tobacco Use Types Packs/Day Years [...] of this encounter Last Filed Vital Signs Not on filedocumented in this encounter Plan of Treatment Date Type Specialty Care Team Description 04/29/2019 Hospital Encounter Surgery Nathaniel Herrera MD [address] [place] [address] [phone] 05/16/2019 Office Visit Orthopedic Surgery Nathaniel Herrera MD [address] [place] [phone] 05/16/2019 Office Visit Orthopedic Surgery Health Maintenance Due Date Last Done Comments Hepatitis C Screening (B. 1955 [id number]) MMR Vaccines (1 of 1 - Standard 1955 series) DTaP,Tdap,and Td Vaccines (1 - 1961 Tdap) HIV Screening 1967 Colon Cancer Screening 10 yrs 2004 Zoster Vaccines (1 of 2) 2004 Influenza Vaccine 03/11/2019 Pneumococcal Vaccine: 65+ Years (1 2019 of 2 - PCV13) HIB Vaccines Aged Out No longer eligible [...] Years) and At-Risk patient's age to complete this Patients (6 to 64 Years) topic Varicella Vaccines Aged Out No longer eligible based on patient's age to complete this topic documented as of this encounter Procedures Procedure Name Priority Date/Time Associated Diagnosis Comments CT LOWER EXTREMITY Routine 04/25/2019 12:20 PM Avascular necrosis Results for this WITHOUT CONTRAST [place] [id number] the results section. documented in this encounter Results CT Lower Extremity without Contrast Left (04/25/2019 12:20 PM EST) Specimen Impressions Performed At IMPRESSION: Examination performed for preoperative planning for left [facility] hip MAKOplasty which demonstrates advanced degenerative changes of the left hip joint with flattening of the left femoral head, likely a sequela of AVN.?? Narrative Performed At INDICATION: ORTHO RECOMMENDING LEFT TOTAL HIP ARTHROPLASTY. REQUESTING CT LEFT HIP WITHOUT CONTRAST PRIOR TO SURGERY. [facility] TECHNIQUE: Axial 0.[address] images through the pelvis were obtained with multiplanar reconstructed images of the left hip for preoperative planning for MAKOplasty. Axial images were also obtai giovani through the bilateral knees with a 2.5 mm thickness acquisition. Automated dose lowering techniques and/or adjustment according to patient size were utilized for this exam. COMPARISON: Prior radiograph dated 01/20/2019. FINDINGS: Pelvis: Severe degenerative changes are seen involving the left hip joint with marked joint space narrowing, subchondral cystic change and flattening of the left femoral head. This is likely a sequela o f prior AVN. No fracture or dislocation is identified. Within the visualized portions of pelvis, no free fluid is identified. The prostate gland is mildly enlarged and impresses on the base of the urina ry bladder. There is mild diffuse thickening of the urinary bladder. Bilateral knees. No acute fracture or dislocation. Bony alignment appears anatomic. Mild arthritic changes are seen within the bilateral knee joints. No significant knee joint effusion is appreciated. T he periarticular soft tissues appear unremarkable. Procedure Note Interface, Received Via [facility] - 04/25/2019 4:08 PM EST INDICATION: ORTHO RECOMMENDING LEFT TOTAL HIP ARTHROPLASTY. REQUESTING CT LEFT HIP WITHOUT CONTRAST PRIOR TO SURGERY. TECHNIQUE: Axial 0.[address] images through the pelvis were obtained with multiplanar reconstructed images of the left hip for preoperative planning for MAKOplasty. Axial images were also obtained through the bilateral knees with a 2.5 mm thickness acquisition. Automated dose lowering techniques and/or adjustment according to patient size were utilized for this exam. COMPARISON: Prior radiograph dated 01/20/2019. FINDINGS: Pelvis: Severe degenerative changes are seen involving the left hip joint with marked joint space narrowing, subchondral cystic change and flattening of the left femoral head. This is likely a sequela of prior AVN. No fracture or dislocation is identified. Within the visualized portions of pelvis, no free fluid is identified. The prostate gland is mildly enlarged and impresses on the base of the urinary bladder. There is mild diffuse thickening of the urinary bladder. Bilateral knees. No acute fracture or dislocation. Bony alignment appears anatomic. Mild arthritic changes are seen within the bilateral knee joints. No significant knee joint effusion is appreciated. The periarticular soft tissues appear unremarkable. IMPRESSION: Examination performed for preoperative planning for left hip MAKOplasty which demonstrates advanced degenerative changes of the left hip joint with flattening of the left femoral head, likely a sequela of AVN.?? Performing Organization Address City/State/Zipcode Phone Number [facility] [address] [place] [address] documented in this encounter Visit Diagnoses Diagnosis Avascular necrosis of bone of left hip documented in this encounter
--- OUTSIDE RECORDS SUMMARY | 2019-05-06 15:54 | XMS REPORT | Summary of Care ---
:1955 Author Organization [facility] Address [address] [place] [address] Care Team Providers Name Role Phone Emanuel Glass MD Primary Care Provider Encounter Details Date Type Department Care Team Description 04/25/2019 Office Visit PRE ADMISSION TESTING Avascular necrosis of bone [facility] of left hip [address] [place] [address] Allergies No Known Allergiesdocumented as of this [...] Sign Reading Time Taken Comments Blood Pressure 138/72 04/25/2019 11:10 AM EST Pulse 96 04/25/2019 11:10 AM EST Temperature 36.8 04/25/2019 11:10 AM EST C (98.2 F) Respiratory Rate 16 04/25/2019 11:10 AM EST Oxygen Saturation - - Inhaled Oxygen Concentration - - Weight 61.2 kg (135 lb) 04/25/2019 11:10 AM EST Height 162.6 cm (5' 4") 04/25/2019 11:10 AM EST Body Mass Index 23.17 04/25/2019 11:10 AM EST documented in this encounter Plan of Treatment Date Type Specialty Care Team Description 04/29/2019 Hospital Encounter Surgery Nathaniel Herrera MD [address] [place] [address] [place] [phone] 05/16/2019 Office Visit Orthopedic Surgery Nahtaniel Herrera MD [address] [place] [phone] 05/16/2019 Office Visit Orthopedic Surgery Name Type Priority Associated Diagnoses Date/Time Staph Aureus MRSA Microbiology Routine 04/25/2019 11:44 AM PCR EST Health Maintenance Due Date Last Done Comments Hepatitis C Screening (B. 1955 [id number]) MMR Vaccines (1 of 1 - Standard [...] Procedure Name Priority Date/Time Associated Comments Diagnosis CBC AND DIFFERENTIAL Routine 04/25/2019 11:31 Avascular necrosis Results for this AM EST of bone of left hip procedure are in the results section. TYPE AND SCREEN Routine 04/25/2019 11:31 Avascular necrosis Results for this AM EST of bone of left hip procedure are in the results section. BASIC METABOLIC PANEL Routine 04/25/2019 11:31 Avascular necrosis Results for this AM EST of bone of left hip procedure are in the results section. documented in this encounter Results Basic Metabolic Panel (04/25/2019 11:31 AM EST) Bicarbonate 30 (H) 22 - 29 mmol/L [facility] Chloride 99 98 - 107 mmol/L [facility] Creatinine 0.89 0.70 - 1.20 [facility] mg/dL [facility] at CG Glucose 103 70 - 140 mg/dL [facility] Potassium 4.3 3.4 - 5.1 [facility] mmol/L [facility] Sodium 135 (L) 136 - 145 [facility] mmol/L [facility] Blood Urea Nitrogen 11 8 - 23 mg/dL [facility] Anion Gap 6 (L) 8 - 15 mmol/L [facility] Osmolality, Nam 280 275 - 300 [facility] mosm/kg [facility] BUN/Cre Ratio 12 [facility] Calcium 9.6 8.8 - 10.2 [facility] mg/dL [facility] GFR Non 88 >60 [facility] Romanian 2009 CDK-EPI mL/min/1.73m2 [facility] CG GFR >90 >60 [facility] 2009 CKD-EPI mL/min/1.73m2 [facility] Specimen Plasma Performing Organization Address City/State/Zipcode Phone Number [facility] PATHOLOGY AT [facility] [address] [place] [address] [phone] [facility] [address] [place] [address] CBC and Differential (04/25/2019 11:31 AM EST) White Blood Cell 4.5 4 - 10 [facility] 10*3/uL [facility] Red Blood Cell 4.01 (L) 4.6 - 6.1 [facility] 10*6/uL [facility] Hemoglobin 13.5 13.5 - 18 [facility] g/dL [facility] Hematocrit 39.9 (L) 41 - 53 % [facility] Mean Cell Volume 99.4 (H) 80 - 96 fL [facility] Mean Cell Hemoglobin 33.7 (H) 27 - 33 pg [facility] Mean Cell Hgb Conc 33.9 32.0 - 36.0 [facility] g/dL [facility] Red Cell Dist Width 14.2 11.5 - 14.5 % [facility] Platelet Count 274 150 - 400 [facility] 10*3/uL [facility] Differential Type Automated Diff [facility] Neutrophil 65 % [facility] Lymphocyte 24 % [facility] Monocyte 7 % [facility] Eosinophil 2 % [facility] Basophil 2 % [facility] Abs Neutrophil 2.97 1.8 - 7.0 [facility] 10*3/uL [facility] Abs Lymphocyte 1.07 (L) 1.2 - 4.0 [facility] 10*3/uL [facility] Abs Monocyte 0.33 0 - 0.8 [facility] 10*3/uL [facility] Abs Eosinophil 0.07 0 - 0.5 [facility] 10*3/uL [facility] Abs Basophil 0.07 0 - 0.2 [facility] 10*3/uL [facility] Nucleated Red Blood 0 0 - 0 [facility] Cells /100{WBCs} [facility] Specimen EDTA Whole Blood Performing Organization Address City/State/Zipcode Phone Number [facility] PATH[facility]Y AT [address] [address] [phone] [facility] [address] [place] [address] Type and Screen (04/25/2019 11:31 AM EST) ABO/RH(D) O POS [facility] Gel Antibody Screen NEG [facility] Site Performed at [facility] , [place], [place] Specimen EDTA Whole Blood Performing Organization Address City/State/[facility] Phone Number [facility] PATHOLOGY AT [address] [address] [facility] [address] [place] [address] documented in this encounter Visit Diagnoses Diagnosis Avascular necrosis of bone of left hip documented in this encounter
[2019-05-06 17:44] LABS: ABS Basophils 0.1 10^3/ul (0-0.2); ABS Eosinophils 0.4 10^3/ul (0-0.6); ABS Lymphocytes 1.7 10^3/ul (1.0-4.8); ABS Neutrophils 6.8 10^3/ul (1.5-7.7); Eosinophil % 3.7 %; Hematocrit 27 % (42-52); Hemoglobin 9.3 g/dL (14.0-18.0); Lymphocyte % 16.8 %; Mean Corpuscular HGB Conc 34 g/dL (31-36); Mean Corpuscular Hemoglobin 34 pg (27-31); Mean Corpuscular Volume 99 fL (80-94); Mean Platelet Volume 6.4 fL (7.4-10.4); Nucleated Red Blood Cells % 0.1; Platelet Count 368 10^3/uL (150-450); Red Blood Count 2.75 10^6 /uL (4.18-5.48); Red Cell Distribution Width 16 % (10-15); White Blood Count 9.9 10^3/uL (3.5-10.8)
[2019-05-06 17:59] LABS: Activated Partial Thrombo Time 37.1 seconds (26.0-38.0); INR 0.95 (0.82-1.09)
[2019-05-06 18:04] LABS: Albumin 4.3 g/dL (3.2-5.2); Albumin/Globulin Ratio 1.3 (1-3); BUN/Creatinine Ratio 15.8 (8-20); Calcium 9.7 mg/dL (8.6-10.3); EGFR African American 96.3 (>60); EGFR Non-African American 79.6 (>60); Globulin 3.3 g/dL (2-4); Total Bilirubin 3.9 mg/dL (0.2-1.0); Total Protein 7.6 g/dL (6.4-8.9)
--- NOTE | 2019-05-06 18:08 | ED ---
Lower Extremity - HPI Summary HPI Summary: Patient is a 64 year old male inmate who presents today with left leg pain and swelling. He states that he has had ongoing leg pain since Sunday, following an ORIF of the left hip. He denies re-injuying the left hip/leg. The provider at the [facility] was concerned that the patient may have a DVT and sent him to the ED for further evaluation. no fevers. notice increase brusining. no rash. no numbness or tingling. no drainage from wound. surgery was at [facility]. on aspirin. no blood thinners. - History of Current Complaint Chief Complaint: EDExtremityLower Stated Complaint: POSS DVT PER LAW Time Seen by Provider: 05/06/19 17:58 Pain Intensity: 6 - Allergies/Home Medications Allergies/Adverse Reactions: Allergies Allergy/AdvReac Type Severity Reaction Status Date / Time No Known Allergies Allergy Verified 05/06/19 15:37 PMH/Surg Hx/FS Hx/Imm Hx Endocrine/Hematology History: Denies: Hx Anticoagulant Therapy Cardiovascular History: Reports: Hx Hypertension Infectious Disease History: No Infectious Disease History: Denies: Traveled Outside the [place] in Last 30 Days - Family History Known Family History: Positive: Non-Contributory - Social History Substance Use Type: Reports: None Smoking Status (MU): Unknown if Ever Smoked Review of Systems Constitutional: Negative Eyes: Negative Cardiovascular: Negative Respiratory: Negative Gastrointestinal: Negative Genitourinary: Negative Positive: Other - left hip pain, left lower leg pain, left leg swelling, ecchymosis Positive: Bruising Neurological: Negative Psychological: Normal All Other Systems Reviewed And Are Negative: Yes Physical Exam Triage Information Reviewed: Yes Vital Signs On Initial Exam: Initial Vitals Temp Pulse Resp BP Pulse Ox 98.2 F 63 18 102/65 100 05/06/19 15:34 05/06/19 15:34 05/06/19 15:34 05/06/19 15:34 05/06/19 15:34 Vital Signs Reviewed: Yes Appearance: Positive: Well-Appearing, No Pain Distress, Well-Nourished Skin: Positive: Warm, Skin Color Reflects Adequate Perfusion, Dry, Tender, Other - Diffuse ecchymosis from left hip to left calf, posterior aspect. Surgical incision is appears to be well-healing and is without discharge or erythema. Head/Face: Positive: Normal Head/Face Inspection Eyes: Positive: Normal, EOMI ENT: Positive: Pharynx normal Neck: Positive: Supple, Nontender Respiratory/Lung Sounds: Positive: Clear to Auscultation, Breath Sounds Present Cardiovascular: Positive: Normal, RRR, S1, S2 Abdomen Description: Positive: Nontender, Soft Bowel Sounds: Positive: Present Musculoskeletal: Positive: Strength/ROM Intact - foot left, Other - tenderness left hip, good pulses, able to wiggle toes, sensation grossly intact Neurological: Positive: Normal Psychiatric: Positive: Normal, Affect/Mood Appropriate Procedures - Sedation Patient Received Moderate/Deep Sedation with Procedure: No Diagnostics - Vital Signs Vital Signs Temp Pulse Resp BP Pulse Ox 05/06/19 17:41 97.8 F 72 18 99/54 99 05/06/19 15:34 98.2 F 63 18 102/65 100 - Laboratory Lab Results: Lab Results 05/06/19 05/06/19 05/06/19 Range/Units 17:34 17:34 17:34 WBC 9.9 (3.5-10.8) 10^3/uL RBC 2.75 L (4.18-5.48) 10^6 /uL Hgb 9.3 L (14.0-18.0) g/dL Hct 27 L (42-52) % MCV 99 H (80-94) fL MCH 34 H (27-31) pg MCHC 34 (31-36) g/dL RDW 16 H (10-15) % Plt Count 368 (150-450) 10^3/uL MPV 6.4 L (7.4-10.4) fL Neut % (Auto) 68.8 % Lymph % (Auto) 16.8 % [place] % (Auto) 9.9 % Eos % (Auto) 3.7 % Baso % (Auto) 0.8 % Absolute Neuts (auto) 6.8 (1.5-7.7) 10^3/ul Absolute Lymphs (auto) 1.7 (1.0-4.8) 10^3/ul Absolute Monos (auto) 1.0 H (0-0.8) 10^3/ul Absolute Eos (auto) 0.4 (0-0.6) 10^3/ul Absolute Basos (auto) 0.1 (0-0.2) 10^3/ul Absolute Nucleated RBC 0.0 10^3/ul Nucleated RBC % 0.1 INR (Anticoag Therapy) 0.95 (0.82-1.09) APTT 37.1 (26.0-38.0) seconds Sodium 132 L (135-145) mmol/L Potassium 5.0 (3.5-5.0) mmol/L Chloride 98 L (101-111) mmol/L Carbon Dioxide 27 (22-32) mmol/L Anion Gap 7 (2-11) mmol/L BUN 15 (6-24) mg/dL Creatinine 0.95 (0.67-1.17) mg/dL Est GFR ( Amer) 96.3 (>60) Est GFR (Non-Af Amer) 79.6 (>60) BUN/Creatinine Ratio 15.8 (8-20) Glucose 111 H (70-100) mg/dL Calcium 9.7 (8.6-10.3) mg/dL Total Bilirubin 3.90 H (0.2-1.0) mg/dL AST 56 H (13-39) U/L ALT 32 (7-52) U/L Alkaline Phosphatase 52 (34-104) U/L Total Protein 7.6 (6.4-8.9) g/dL Albumin 4.3 (3.2-5.2) g/dL Globulin 3.3 (2-4) g/dL Albumin/Globulin Ratio 1.3 (1-3) Result Diagrams: 05/06/19 17:34 05/06/19 17:34 Lab Statement: Any lab studies that have been ordered have been reviewed, and results considered in the medical decision making process. - Ultrasound No standard instances Ultrasound Interpretation Completed By: Radiologist Summary of Ultrasound Findings: IMPRESSION: NO EVIDENCE OF DEEP VENOUS THROMBOSIS IS IDENTIFIED. Lower Extremity Course/Dx - Course Course Of Treatment: 64 year old male who presents with left leg/hip pain, swelling. Diffuse ecchymosis noted. Surgical site is intact, without drainage or eythema. U/s negative for DVT. no evidence of cellulitis. told to ice, elevated. patient understand and agrees with plan. - Diagnoses Differential Diagnosis/HQI/PQRI: Positive: Contusion, DVT, Infection Provider Diagnoses: Left leg pain, Ecchymosis Discharge ED - Sign-Out/Discharge Documenting (check all that apply): Patient Departure - Discharge Plan Condition: Good Disposition: HOME Patient Education Materials: R.I.C.E. Treatment (ED) Referrals: Nathan GONZALEZ,Ana Dodge [Primary Care Provider] - Additional Instructions: Ice Elevate Take Tylenol for pain every 6 hours Follow up with ortho as scheduled Return to ED if develop any new or worsening symptoms - Billing Disposition and Condition Condition: GOOD Disposition: Home - Attestation Statements Provider Attestation: I was available for consult. This patient was seen by the [facility]. The patient was not presented to, seen by, or examined by me. Rashaun Arias MD
[2019-05-06 18:44] VITALS: BP 116/67
== END 2019-05-06 18:40 | disposition home or self-care (01) ==
LOC: ED 15:31
DX: M79.605 Pain in left leg (principal); R58 Hemorrhage, not elsewhere classified; I10 Essential (primary) hypertension; Z79.82 Long term (current) use of aspirin
CPT/HCPCS: 36415; 80053; 85025; 85610; 85730; 99281